=== PATIENT | female | born 1985 | race Caucasian/White ===

== ENCOUNTER 2023-09-11 21:07 | Inpatient (IN) | payer SELFPAY ==
[~2023-09-11] VITALS: Ht 165.1 cm; Wt 81.6 kg
[2023-09-11 21:16] VITALS: BP 134/92; PULSE 119; RESP 16; TEMP 97.3; O2SAT 99
[2023-09-11 21:25] VITALS: O2SAT 98
[2023-09-11] MEDS: METOCLOPRAMIDE 10 MG/2 ML INJ VIAL IVP ONE (22:01)
[2023-09-11] MEDS: MORPHINE SULFATE 4 MG/ML SYR IVP ONE (22:02)
[2023-09-11] MEDS: NACL 0.9% 1,000 ML IV ONE (22:21)
[2023-09-11] MEDS: diphenhydrAMINE 50 MG/ML VIAL IVP ONE (22:24)
[2023-09-11 23:00] LABS: ANION GAP 15.3 (8-16); CALCIUM 8.1 mg/dL (8.5-10.1); CARBON DIOXIDE 20.8 mmol/L (21-32); CREATININE 0.8 mg/dL (0.6-1.3); POTASSIUM 4.1 mmol/L (3.5-5.1)
[2023-09-11] MEDS: HYDROmorphone PFS 2 MG/ML SYR IVP ONE ×2 (23:25→23:50)
[2023-09-11 23:42] LABS: BASOPHILS # (AUTO) 0.1 K/uL (0.00-0.22); BASOPHILS % (AUTO) 0.8 % (0.0-2.0); EOSINOPHILS % (AUTO) 0.3 % (0.0-4.0); HEMATOCRIT 40.4 % (36-48); HEMOGLOBIN 13.7 g/dL (12.0-16.0); LYMPHOCYTES # (AUTO) 2.6 K/uL (2.5-16.5); LYMPHOCYTES % (AUTO) 16.4 % (20.5-51.1); MEAN CORPUSCULAR HEMOGLOBIN 31 pg (27-31); MEAN CORPUSCULAR HGB CONC 34 g/dL (33-37); MEAN CORPUSCULAR VOLUME 92.1 fL (80-94); MONOCYTES # (AUTO) 0.8 K/uL (0.8-1.0); MONOCYTES % (AUTO) 4.9 % (1.7-9.3); NEUTROPHILS # (AUTO) 12.4 K/uL (1.8-7.7); NEUTROPHILS % (AUTO) 77.6 % (42.2-75.2); PLATELET COUNT (AUTO) 196 K/uL (140-450); RED BLOOD CELL COUNT(AUTO) 4.39 MIL/uL (4.20-5.40); RED CELL DISTRIBUTION WIDTH 12.8 % (11.6-13.7)
[2023-09-11] MEDS: PROCHLORPERAZINE 10 MG/2 ML VIAL IVP ONE (23:50)
[2023-09-12] VITALS (8 sets, daily range): BP systolic 98–101; BP diastolic 62–69; PULSE 86–100; RESP 18–20; TEMP 97.1–97.7; O2SAT 95–98
[2023-09-12] MEDS ORDERED: TRAZ-343 PO (00:18)
[2023-09-12] MEDS ORDERED: TIZA4CAP PO (00:18)
[2023-09-12] MEDS ORDERED: ACET-8905 PO (00:18)
[2023-09-12] MEDS ORDERED: PANT40EC PO (00:18)
[2023-09-12] MEDS ORDERED: [UNRECOGNIZED DRUG - CODE] OP (00:18)
[2023-09-12] MEDS ORDERED: HYDR-5458 PO (00:18)
[2023-09-12] MEDS ORDERED: BUPR150T12 PO (00:18)
[2023-09-12] MEDS ORDERED: ONDA-188 SL (00:18)
[2023-09-12] MEDS ORDERED: PRON INH (00:18)
[2023-09-12] MEDS ORDERED: AMPH20CE PO (00:18)
[2023-09-12] MEDS: diphenhydrAMINE 50 MG/ML VIAL IVP ONE ×2 (00:51→10:54)
[2023-09-12] MEDS ORDERED: NACL 0.9% 1,000 ML IV SCH (01:20)
[2023-09-12] MEDS: ONDANSETRON 4 MG ODT PO SCH (03:12)
[2023-09-12] MEDS: MORPHINE SULFATE 4 MG/ML SYR IVP PRN (03:13)
[2023-09-12] MEDS: HYDROcodone/APAP 5/325 MG 1 TAB TAB PO PRN (04:31)
[2023-09-12] MEDS: MORPHINE SULFATE 2 MG/ML SYR IVP PRN (08:09)
[2023-09-12] MEDS: ENOXAPARIN 40 MG/0.4 ML SYR SUBQ SCH (09:00)
[2023-09-12] MEDS ORDERED: MORPHINE SULFATE 4 MG/ML SYR IVP PRN ×2 (10:30→15:00)
[2023-09-12 10:52] LABS: BASOPHILS # (AUTO) 0.2 K/uL (0.00-0.22); BASOPHILS % (AUTO) 1.5 % (0.0-2.0); EOSINOPHILS # (AUTO) 0.2 K/uL (0-0.4); EOSINOPHILS % (AUTO) 1.3 % (0.0-4.0); HEMATOCRIT 37.4 % (36-48); HEMOGLOBIN 12.6 g/dL (12.0-16.0); LYMPHOCYTES # (AUTO) 4.8 K/uL (2.5-16.5); LYMPHOCYTES % (AUTO) 31.9 % (20.5-51.1); MEAN CORPUSCULAR HEMOGLOBIN 31 pg (27-31); MEAN CORPUSCULAR HGB CONC 34 g/dL (33-37); MEAN CORPUSCULAR VOLUME 92.7 fL (80-94); MONOCYTES # (AUTO) 1.2 K/uL (0.8-1.0); MONOCYTES % (AUTO) 7.7 % (1.7-9.3); NEUTROPHILS # (AUTO) 8.7 K/uL (1.8-7.7); NEUTROPHILS % (AUTO) 57.6 % (42.2-75.2); PLATELET COUNT (AUTO) 249 K/uL (140-450); RED BLOOD CELL COUNT(AUTO) 4.03 MIL/uL (4.20-5.40); RED CELL DISTRIBUTION WIDTH 12.8 % (11.6-13.7); WHITE BLOOD COUNT (AUTO) 15.2 K/uL (4.8-10.8)
[2023-09-12] MEDS: PROCHLORPERAZINE 10 MG/2 ML VIAL IVP PRN ×2 (10:54→17:54)
[2023-09-12 11:07] LABS: ANION GAP 12.7 (8-16); CALCIUM 8.1 mg/dL (8.5-10.1); CARBON DIOXIDE 23.7 mmol/L (21-32); CREATININE 0.7 mg/dL (0.6-1.3); POTASSIUM 3.4 mmol/L (3.5-5.1)
[2023-09-12] MEDS: POTASSIUM CHLORIDE 10 MEQ TABER PO ONE ×2 (11:50→14:53)
[2023-09-12] MEDS ORDERED: hydrALAZINE 20 MG/ML VIAL IVP PRN (11:50)
[2023-09-12] MEDS ORDERED: KETOROLAC 10 MG TAB PO PRN (12:10)
[2023-09-12] MEDS ORDERED: PROCHLORPERAZINE 10 MG/2 ML VIAL IM PRN (17:30)
[2023-09-12] MEDS: diphenhydrAMINE 50 MG/ML VIAL IVP PRN (17:54)
[2023-09-12] MEDS: HYDROmorphone 1 MG/ML AMP IVP PRN (17:54)
[2023-09-12] MEDS: buPROPion 150 MG TABER PO SCH (20:18)
[2023-09-12] MEDS: HYDROXYCHLOROQUINE 200 MG TAB PO SCH (20:18)
[2023-09-12] MEDS: ONDANSETRON 4 MG ODT SL PRN (23:38)
[2023-09-13] VITALS (8 sets, daily range): BP systolic 101–116; BP diastolic 62–65; PULSE 89–112; RESP 18–20; TEMP 97.1–100; O2SAT 95–99
[2023-09-13 02:26] LABS: APPEARANCE,URINE HAZY (CLEAR); BILIRUBIN,URINE NEGATIVE (NEGATIVE); BLOOD, URINE NEGATIVE (NEGATIVE); COLOR,URINE YELLOW (YELLOW); LEUKOCYTE ESTERASE ,URINE NEGATIVE (NEGATIVE); NITRITE, URINE NEGATIVE (NEGATIVE); PROTEIN,URINE NEGATIVE (NEGATIVE); UGLUCOSE NEGATIVE (NEGATIVE); UROBILINOGEN,URINE 0.2 EU/dL (0.2 - 1)
[2023-09-13] MEDS: traZODone 50 MG TAB PO PRN (03:08)
[2023-09-13 03:18] LABS: BACTERIA,URINE 2+ /HPF (None Seen); RBC,URINE 0-5 /HPF (0-5); SQUAMOUS EPITHELIAL CELL,UR >10 (MANY) /LPF (0-3 (FEW)); WBC,URINE 0-5 /HPF (0-5)
[2023-09-13] MEDS: PANTOPRAZOLE 40 MG TABEC PO SCH (06:15)
[2023-09-13] MEDS: CRUSHER, PILL MC ONE (06:26)
[2023-09-13 06:43] LABS: BASOPHILS # (AUTO) 0.1 K/uL (0.00-0.22); BASOPHILS % (AUTO) 0.6 % (0.0-2.0); EOSINOPHILS # (AUTO) 0.4 K/uL (0-0.4); HEMATOCRIT 34.7 % (36-48); HEMOGLOBIN 11.9 g/dL (12.0-16.0); LYMPHOCYTES % (AUTO) 48.4 % (20.5-51.1); MEAN CORPUSCULAR HEMOGLOBIN 32 pg (27-31); MEAN CORPUSCULAR HGB CONC 34 g/dL (33-37); MEAN CORPUSCULAR VOLUME 92.4 fL (80-94); MONOCYTES # (AUTO) 0.9 K/uL (0.8-1.0); MONOCYTES % (AUTO) 6.9 % (1.7-9.3); NEUTROPHILS # (AUTO) 5.1 K/uL (1.8-7.7); NEUTROPHILS % (AUTO) 41.1 % (42.2-75.2); PLATELET COUNT (AUTO) 273 K/uL (140-450); RED BLOOD CELL COUNT(AUTO) 3.75 MIL/uL (4.20-5.40); RED CELL DISTRIBUTION WIDTH 12.8 % (11.6-13.7); WHITE BLOOD COUNT (AUTO) 12.4 K/uL (4.8-10.8)
[2023-09-13 07:21] LABS: ALBUMIN 3.4 g/dL (3.4-5.0); ANION GAP 12.4 (8-16); CALCIUM 8.1 mg/dL (8.5-10.1); CARBON DIOXIDE 25.1 mmol/L (21-32); CREATININE 0.7 mg/dL (0.6-1.3); MAGNESIUM 1.9 mg/dL (1.8-2.4); PHOSPHORUS 3.3 mg/dL (2.5-4.9); POTASSIUM 3.5 mmol/L (3.5-5.1); TOTAL BILIRUBIN 0.4 mg/dL (0.0-1.0); TOTAL PROTEIN, SERUM 6.4 g/dL (6.4-8.2)
[2023-09-13] MEDS: ALBUTEROL 0.083% 2.5 MG/3 ML NEBU INH PRN (12:06)
[2023-09-13] MEDS: METOCLOPRAMIDE 10 MG/2 ML INJ VIAL IVP PRN (14:56)
[2023-09-14] VITALS (7 sets, daily range): BP systolic 93–110; BP diastolic 57–63; PULSE 75–110; RESP 18–20; TEMP 98–98.9; O2SAT 96–100
[2023-09-14] MEDS: ACETAMINOPHEN 325 MG TAB PO PRN (06:34)
[2023-09-14 07:03] LABS: BASOPHILS # (AUTO) 0.1 K/uL (0.00-0.22); BASOPHILS % (AUTO) 0.5 % (0.0-2.0); EOSINOPHILS # (AUTO) 0.3 K/uL (0-0.4); EOSINOPHILS % (AUTO) 2.9 % (0.0-4.0); HEMATOCRIT 35.9 % (36-48); HEMOGLOBIN 12.1 g/dL (12.0-16.0); LYMPHOCYTES # (AUTO) 4.4 K/uL (2.5-16.5); LYMPHOCYTES % (AUTO) 41.3 % (20.5-51.1); MEAN CORPUSCULAR HEMOGLOBIN 31 pg (27-31); MEAN CORPUSCULAR HGB CONC 34 g/dL (33-37); MEAN CORPUSCULAR VOLUME 92.9 fL (80-94); NEUTROPHILS # (AUTO) 4.9 K/uL (1.8-7.7); NEUTROPHILS % (AUTO) 46.3 % (42.2-75.2); PLATELET COUNT (AUTO) 244 K/uL (140-450); RED BLOOD CELL COUNT(AUTO) 3.87 MIL/uL (4.20-5.40); RED CELL DISTRIBUTION WIDTH 12.8 % (11.6-13.7); WHITE BLOOD COUNT (AUTO) 10.6 K/uL (4.8-10.8)
[2023-09-14 07:27] LABS: ANION GAP 12.4 (8-16); CALCIUM 9.3 mg/dL (8.5-10.1); CARBON DIOXIDE 25.2 mmol/L (21-32); CREATININE 0.8 mg/dL (0.6-1.3); POTASSIUM 3.6 mmol/L (3.5-5.1)
[2023-09-14] MEDS: MAG SULF 2000 MG/WATER PREMIX 50 ML IV SCH (11:00)
[2023-09-14] MEDS ORDERED: VALPROATE SODIUM 500 MG in NACL 0.9% 100 ML IV SCH (11:30)
[2023-09-14] MEDS: DEXAMETHASONE 4 MG/ML VIAL IVP SCH (11:32)
[2023-09-14] MEDS: MORPHINE SULFATE 4 MG/ML SYR IVP PRN ×2 (12:12→18:11)
[2023-09-14] MEDS: METOCLOPRAMIDE 10 MG/2 ML INJ VIAL IVP PRN (18:11)
[2023-09-14] MEDS: diphenhydrAMINE 50 MG/ML VIAL IVP PRN (18:12)
[2023-09-15 04:00] VITALS: BP 104/65; PULSE 85; RESP 20; TEMP 98.6; O2SAT 97
[2023-09-15 07:07] LABS: ANION GAP 15.5 (8-16); BASOPHILS % (AUTO) 0.1 % (0.0-2.0); CALCIUM 9.1 mg/dL (8.5-10.1); CARBON DIOXIDE 22.6 mmol/L (21-32); CREATININE 0.9 mg/dL (0.6-1.3); EOSINOPHILS # (AUTO) 0.1 K/uL (0-0.4); EOSINOPHILS % (AUTO) 0.8 % (0.0-4.0); HEMATOCRIT 33.1 % (36-48); HEMOGLOBIN 11.6 g/dL (12.0-16.0); LYMPHOCYTES % (AUTO) 13.8 % (20.5-51.1); MEAN CORPUSCULAR HEMOGLOBIN 32 pg (27-31); MEAN CORPUSCULAR HGB CONC 35 g/dL (33-37); MEAN CORPUSCULAR VOLUME 91.8 fL (80-94); NEUTROPHILS # (AUTO) 11.2 K/uL (1.8-7.7); NEUTROPHILS % (AUTO) 78.3 % (42.2-75.2); PLATELET COUNT (AUTO) 305 K/uL (140-450); POTASSIUM 4.1 mmol/L (3.5-5.1); RED BLOOD CELL COUNT(AUTO) 3.61 MIL/uL (4.20-5.40); RED CELL DISTRIBUTION WIDTH 12.7 % (11.6-13.7); WHITE BLOOD COUNT (AUTO) 14.3 K/uL (4.8-10.8)
[2023-09-15 08:00] VITALS: BP 95/53; PULSE 84; RESP 18; TEMP 99.4; O2SAT 98
[2023-09-15 08:01] VITALS: PULSE 89; RESP 20; O2SAT 99
[2023-09-15 09:06] VITALS: PULSE 99; RESP 20; O2SAT 97
[2023-09-15] MEDS: HYDROmorphone PFS 2 MG/ML SYR IVP PRN (10:08)
[2023-09-15] MEDS: LORazepam 2 MG/ML VIAL IM/IVP PRN (11:08)
[2023-09-15 16:00] VITALS: BP 94/57; PULSE 92; RESP 18; TEMP 98; O2SAT 97
[2023-09-15 20:00] VITALS: BP_SYST 104; BP_SYST 107; BP_DIAS 55; BP_DIAS 58; PULSE 62; PULSE 72; PULSE 88; RESP 16; RESP 18; TEMP 97.3; TEMP 99.4; O2SAT 93; O2SAT 95; O2SAT 96
[2023-09-15 20:00] LABS: AMPHETAMINE, URINE NEGATIVE ng/ml (NEG <=1000); BARBITURATE, URINE POSITIVE ng/ml (NEG <=200); BENZODIAZEPINE, URINE POSITIVE ng/mL (NEG <=200); CANNABINOID, URINE NEGATIVE ng/mL (NEG <=50); COCAINE, URINE NEGATIVE ng/mL (NEG <=300); PHENCYCLIDINE SCREEN,URINE NEGATIVE ng/mL (NEG <=25)
[2023-09-15 20:01] LABS: OPIATE, URINE POSITIVE ng/mL (NEG <=2000)
[2023-09-15] MEDS: HYDROcodone/APAP 10/325 MG 1 TAB TAB PO PRN (23:40)
[2023-09-16 04:00] VITALS: BP 98/50; PULSE 76; RESP 18; TEMP 98.3; O2SAT 96
[2023-09-16 07:18] LABS: BASOPHILS # (AUTO) 0.1 K/uL (0.00-0.22); BASOPHILS % (AUTO) 0.3 % (0.0-2.0); EOSINOPHILS # (AUTO) 0.6 K/uL (0-0.4); EOSINOPHILS % (AUTO) 3.9 % (0.0-4.0); HEMATOCRIT 31.7 % (36-48); LYMPHOCYTES % (AUTO) 41.5 % (20.5-51.1); MEAN CORPUSCULAR HEMOGLOBIN 32 pg (27-31); MEAN CORPUSCULAR HGB CONC 35 g/dL (33-37); MEAN CORPUSCULAR VOLUME 92.9 fL (80-94); MONOCYTES # (AUTO) 1.1 K/uL (0.8-1.0); MONOCYTES % (AUTO) 7.5 % (1.7-9.3); NEUTROPHILS # (AUTO) 6.8 K/uL (1.8-7.7); NEUTROPHILS % (AUTO) 46.8 % (42.2-75.2); PLATELET COUNT (AUTO) 291 K/uL (140-450); RED BLOOD CELL COUNT(AUTO) 3.41 MIL/uL (4.20-5.40); RED CELL DISTRIBUTION WIDTH 12.5 % (11.6-13.7); WHITE BLOOD COUNT (AUTO) 14.5 K/uL (4.8-10.8)
[2023-09-16 07:36] LABS: ANION GAP 13.9 (8-16); CALCIUM 9.3 mg/dL (8.5-10.1); CARBON DIOXIDE 24.9 mmol/L (21-32); CREATININE 0.7 mg/dL (0.6-1.3); POTASSIUM 3.8 mmol/L (3.5-5.1)
[2023-09-16 08:00] VITALS: PULSE 82; RESP 18; O2SAT 96
[2023-09-16 08:52] VITALS: PULSE 82; RESP 18; O2SAT 98
[2023-09-16 09:00] VITALS: BP 118/62; PULSE 82; RESP 18; TEMP 98.1; O2SAT 97
[2023-09-16] MEDS: LORazepam 2 MG/ML VIAL IM/IVP PRN (11:23)
[2023-09-16] MEDS: diphenhydrAMINE 50 MG/ML VIAL IVP SCH (13:12)
[2023-09-16 16:28] VITALS: BP 112/60; PULSE 77; RESP 18; TEMP 99.3; O2SAT 97
[2023-09-16 20:00] VITALS: BP 141/72; PULSE 92; RESP 18; TEMP 100.2; O2SAT 18; O2SAT 97
[2023-09-17 04:00] VITALS: BP 88/53; PULSE 82; RESP 18; TEMP 99.1; O2SAT 94
[2023-09-17 07:18] LABS: BASOPHILS % (AUTO) 0.4 % (0.0-2.0); EOSINOPHILS # (AUTO) 0.5 K/uL (0-0.4); EOSINOPHILS % (AUTO) 3.8 % (0.0-4.0); HEMATOCRIT 32.8 % (36-48); HEMOGLOBIN 11.2 g/dL (12.0-16.0); LYMPHOCYTES # (AUTO) 4.5 K/uL (2.5-16.5); LYMPHOCYTES % (AUTO) 37.2 % (20.5-51.1); MEAN CORPUSCULAR HEMOGLOBIN 32 pg (27-31); MEAN CORPUSCULAR HGB CONC 34 g/dL (33-37); MEAN CORPUSCULAR VOLUME 92.9 fL (80-94); MONOCYTES % (AUTO) 8.2 % (1.7-9.3); NEUTROPHILS # (AUTO) 6.1 K/uL (1.8-7.7); NEUTROPHILS % (AUTO) 50.4 % (42.2-75.2); PLATELET COUNT (AUTO) 305 K/uL (140-450); RED BLOOD CELL COUNT(AUTO) 3.53 MIL/uL (4.20-5.40); RED CELL DISTRIBUTION WIDTH 12.5 % (11.6-13.7); WHITE BLOOD COUNT (AUTO) 12.1 K/uL (4.8-10.8)
[2023-09-17 07:24] LABS: ANION GAP 12.1 (8-16); CALCIUM 9.2 mg/dL (8.5-10.1); CARBON DIOXIDE 27.6 mmol/L (21-32); CREATININE 0.9 mg/dL (0.6-1.3); POTASSIUM 3.7 mmol/L (3.5-5.1)
[2023-09-17 08:00] VITALS: BP 100/46; PULSE 75; RESP 15; TEMP 98.9; O2SAT 94
[2023-09-17 08:06] VITALS: PULSE 92; RESP 18; O2SAT 97
[2023-09-17 17:00] VITALS: BP 112/58; PULSE 72; RESP 18; TEMP 98; O2SAT 98
[2023-09-17 20:00] VITALS: BP 128/63; PULSE 82; PULSE 84; RESP 18; TEMP 98.6; O2SAT 98
[2023-09-17 22:40] VITALS: BP 119/65; PULSE 78; RESP 18; TEMP 98.5; O2SAT 97
[2023-09-18 03:00] VITALS: BP 122/66; PULSE 82; RESP 18; O2SAT 98
[2023-09-18 04:00] VITALS: BP 110/60; PULSE 77; RESP 18; TEMP 98.6; O2SAT 97
[2023-09-18] MEDS: CRUSHER, PILL MC ONE (06:23)
[2023-09-18 08:00] VITALS: BP 105/54; PULSE 70; RESP 19; TEMP 98.6; O2SAT 97
[2023-09-18 08:47] VITALS: PULSE 82; RESP 18; O2SAT 98
[2023-09-18] MEDS: cephALEXin 500 MG CAP PO SCH (12:03)
[2023-09-18] MEDS: NACL 0.9% 1,000 ML IV SCH (12:35)
[2023-09-18] MEDS: ONDANSETRON 4 MG/2 ML VIAL IVP PRN (13:32)
[2023-09-18] MEDS ORDERED: PROCHLORPERAZINE 10 MG/2 ML VIAL IVP PRN (15:15)
[2023-09-18 16:00] VITALS: BP 105/54; PULSE 94; RESP 20; TEMP 97.7; O2SAT 98
[2023-09-18 20:00] VITALS: BP 110/61; PULSE 84; RESP 18; TEMP 98.5; O2SAT 92; O2SAT 98
[2023-09-19 04:00] VITALS: BP 99/42; PULSE 84; RESP 18; TEMP 98.3; O2SAT 94
[2023-09-19] MEDS ORDERED: VANCOMYCIN PER PHARMACY MC PRN (04:05)
[2023-09-19] MEDS: diphenhydrAMINE 50 MG/ML VIAL IVP PRN ×2 (05:35→10:49)
[2023-09-19] MEDS: PANTOPRAZOLE 40 MG TABEC PO SCH (06:07)
[2023-09-19 06:54] LABS: BASOPHILS % (AUTO) 0.3 % (0.0-2.0); EOSINOPHILS # (AUTO) 0.6 K/uL (0-0.4); EOSINOPHILS % (AUTO) 5.7 % (0.0-4.0); HEMATOCRIT 33.1 % (36-48); HEMOGLOBIN 11.3 g/dL (12.0-16.0); LYMPHOCYTES # (AUTO) 3.6 K/uL (2.5-16.5); LYMPHOCYTES % (AUTO) 35.7 % (20.5-51.1); MEAN CORPUSCULAR HEMOGLOBIN 32 pg (27-31); MEAN CORPUSCULAR HGB CONC 34 g/dL (33-37); MEAN CORPUSCULAR VOLUME 92.5 fL (80-94); MONOCYTES # (AUTO) 0.8 K/uL (0.8-1.0); MONOCYTES % (AUTO) 8.3 % (1.7-9.3); PLATELET COUNT (AUTO) 308 K/uL (140-450); RED BLOOD CELL COUNT(AUTO) 3.58 MIL/uL (4.20-5.40); RED CELL DISTRIBUTION WIDTH 12.6 % (11.6-13.7)
[2023-09-19] MEDS: VANCOMYCIN 1.25GM PREMIX 250 ML IV ONE (07:02)
[2023-09-19 07:19] LABS: ALBUMIN 3.4 g/dL (3.4-5.0); ANION GAP 14.7 (8-16); CALCIUM 8.6 mg/dL (8.5-10.1); CARBON DIOXIDE 23.1 mmol/L (21-32); CREATININE 0.9 mg/dL (0.6-1.3); POTASSIUM 3.8 mmol/L (3.5-5.1); TOTAL BILIRUBIN 0.5 mg/dL (0.0-1.0); TOTAL PROTEIN, SERUM 6.8 g/dL (6.4-8.2)
[2023-09-19] MEDS: VANCOMYCIN 500 MG VIAL ONE (07:26)
[2023-09-19] MEDS: VANCOMYCIN 1,000 MG VIAL ONE (07:27)
[2023-09-19 08:00] VITALS: BP 11/58; PULSE 80; RESP 18; TEMP 97.5; O2SAT 96
[2023-09-19] MEDS: CEFEPIME 2,000 MG in DEXTROSE 5% 100 ML IV SCH (09:00)
[2023-09-19 16:00] VITALS: BP 113/87; PULSE 82; RESP 18; TEMP 98.5; O2SAT 97
[2023-09-19 20:00] VITALS: BP 120/64; PULSE 98; RESP 16; TEMP 98.5; O2SAT 97
[2023-09-20] MEDS: VANCOMYCIN 1,000 MG VIAL ONE (00:22)
[2023-09-20] MEDS: VANCOMYCIN 1,000 MG in DEXTROSE 5% 250 ML IV SCH ×2 (00:35→11:34)
[2023-09-20 00:53] VITALS: BP 110/58; PULSE 92; RESP 18; TEMP 97.3; O2SAT 97
[2023-09-20 04:00] VITALS: BP 119/54; PULSE 81; RESP 17; TEMP 97.1; O2SAT 97
[2023-09-20 06:58] LABS: BASOPHILS # (AUTO) 0.1 K/uL (0.00-0.22); BASOPHILS % (AUTO) 0.8 % (0.0-2.0); EOSINOPHILS # (AUTO) 0.5 K/uL (0-0.4); EOSINOPHILS % (AUTO) 5.5 % (0.0-4.0); HEMATOCRIT 34.8 % (36-48); HEMOGLOBIN 12.2 g/dL (12.0-16.0); LYMPHOCYTES # (AUTO) 3.2 K/uL (2.5-16.5); LYMPHOCYTES % (AUTO) 33.9 % (20.5-51.1); MEAN CORPUSCULAR HEMOGLOBIN 32 pg (27-31); MEAN CORPUSCULAR HGB CONC 35 g/dL (33-37); MEAN CORPUSCULAR VOLUME 92.2 fL (80-94); MONOCYTES # (AUTO) 0.9 K/uL (0.8-1.0); MONOCYTES % (AUTO) 8.9 % (1.7-9.3); NEUTROPHILS # (AUTO) 4.9 K/uL (1.8-7.7); NEUTROPHILS % (AUTO) 50.9 % (42.2-75.2); PLATELET COUNT (AUTO) 296 K/uL (140-450); RED BLOOD CELL COUNT(AUTO) 3.77 MIL/uL (4.20-5.40); RED CELL DISTRIBUTION WIDTH 12.7 % (11.6-13.7); WHITE BLOOD COUNT (AUTO) 9.6 K/uL (4.8-10.8)
[2023-09-20 07:11] LABS: ANION GAP 16.1 (8-16); CALCIUM 9.2 mg/dL (8.5-10.1); CARBON DIOXIDE 22.8 mmol/L (21-32); CREATININE 0.7 mg/dL (0.6-1.3); POTASSIUM 3.9 mmol/L (3.5-5.1)
[2023-09-20 08:00] VITALS: BP 104/71; PULSE 97; RESP 18; TEMP 98.6; O2SAT 97
[2023-09-20 16:00] VITALS: BP 107/59; PULSE 92; RESP 18; TEMP 97.8; O2SAT 98
[2023-09-20 20:00] VITALS: PULSE 97; RESP 18; O2SAT 97
[2023-09-21 00:28] VITALS: BP 105/57; PULSE 97; RESP 18; TEMP 98; O2SAT 97
[2023-09-21 07:02] LABS: BASOPHILS # (AUTO) 0.2 K/uL (0.00-0.22); BASOPHILS % (AUTO) 2.3 % (0.0-2.0); EOSINOPHILS # (AUTO) 0.6 K/uL (0-0.4); EOSINOPHILS % (AUTO) 7.1 % (0.0-4.0); HEMATOCRIT 33.1 % (36-48); HEMOGLOBIN 11.4 g/dL (12.0-16.0); LYMPHOCYTES # (AUTO) 2.6 K/uL (2.5-16.5); LYMPHOCYTES % (AUTO) 30.3 % (20.5-51.1); MEAN CORPUSCULAR HEMOGLOBIN 32 pg (27-31); MEAN CORPUSCULAR HGB CONC 34 g/dL (33-37); MEAN CORPUSCULAR VOLUME 91.8 fL (80-94); MONOCYTES # (AUTO) 0.8 K/uL (0.8-1.0); MONOCYTES % (AUTO) 9.2 % (1.7-9.3); NEUTROPHILS # (AUTO) 4.4 K/uL (1.8-7.7); NEUTROPHILS % (AUTO) 51.1 % (42.2-75.2); PLATELET COUNT (AUTO) 289 K/uL (140-450); RED BLOOD CELL COUNT(AUTO) 3.61 MIL/uL (4.20-5.40); RED CELL DISTRIBUTION WIDTH 12.3 % (11.6-13.7); WHITE BLOOD COUNT (AUTO) 8.5 K/uL (4.8-10.8)
[2023-09-21 08:00] VITALS: PULSE 97; RESP 18; O2SAT 97
[2023-09-21 08:28] VITALS: BP 108/76; PULSE 74; RESP 20; TEMP 97.2; O2SAT 98
[2023-09-21 11:42] LABS: ANION GAP 9.1 (8-16); CALCIUM 8.6 mg/dL (8.5-10.1); CARBON DIOXIDE 26.5 mmol/L (21-32); CREATININE 0.8 mg/dL (0.6-1.3); POTASSIUM 3.6 mmol/L (3.5-5.1)
[2023-09-21] MEDS: VANCOMYCIN 1.25GM PREMIX 250 ML IV SCH (12:07)
[2023-09-21 16:28] VITALS: BP 110/84; PULSE 80; RESP 18; TEMP 98.2; O2SAT 97
[2023-09-22 00:55] VITALS: BP 118/66; PULSE 100; RESP 18; TEMP 98.1; O2SAT 98
[2023-09-22 08:00] VITALS: BP 132/72; PULSE 76; PULSE 97; RESP 18; TEMP 98.4; O2SAT 97; O2SAT 98
[2023-09-22 11:07] LABS: BASOPHILS % (AUTO) 0.2 % (0.0-2.0); EOSINOPHILS # (AUTO) 0.6 K/uL (0-0.4); EOSINOPHILS % (AUTO) 6.8 % (0.0-4.0); HEMATOCRIT 32.7 % (36-48); HEMOGLOBIN 11.2 g/dL (12.0-16.0); LYMPHOCYTES # (AUTO) 2.2 K/uL (2.5-16.5); LYMPHOCYTES % (AUTO) 23.8 % (20.5-51.1); MEAN CORPUSCULAR HEMOGLOBIN 31 pg (27-31); MEAN CORPUSCULAR HGB CONC 34 g/dL (33-37); MEAN CORPUSCULAR VOLUME 91.5 fL (80-94); MONOCYTES # (AUTO) 0.6 K/uL (0.8-1.0); MONOCYTES % (AUTO) 6.5 % (1.7-9.3); NEUTROPHILS # (AUTO) 5.7 K/uL (1.8-7.7); NEUTROPHILS % (AUTO) 62.7 % (42.2-75.2); PLATELET COUNT (AUTO) 272 K/uL (140-450); RED BLOOD CELL COUNT(AUTO) 3.57 MIL/uL (4.20-5.40); RED CELL DISTRIBUTION WIDTH 12.3 % (11.6-13.7); WHITE BLOOD COUNT (AUTO) 9.1 K/uL (4.8-10.8)
[2023-09-22 11:35] LABS: ANION GAP 13.1 (8-16); CALCIUM 7.9 mg/dL (8.5-10.1); CARBON DIOXIDE 22.9 mmol/L (21-32); CREATININE 0.9 mg/dL (0.6-1.3)
[2023-09-22] MEDS: VANCOMYCIN 1,000 MG in DEXTROSE 5% 250 ML IV SCH (14:35)
[2023-09-22 16:00] VITALS: BP 128/66; PULSE 78; RESP 18; TEMP 98.4; O2SAT 98
[2023-09-22 17:59] VITALS: BP 132/64; RESP 16; TEMP 98.5
[2023-09-22] MEDS ORDERED: ACET-5634 PO ×2 (18:14→19:01)
[2023-09-22] MEDS ORDERED: METO-485 PO (19:04)
[2023-09-22] MEDS ORDERED: DIPH25TA53 PO (19:05)
== END 2023-09-22 19:30 | disposition home or self-care (01) | DRG 103 ==
LOC: MED 21:07 → MTU 09-12 01:20 → EDBD 09-12 01:20 → MTU 09-16 18:43
PROVIDERS: ADMIT Student in an Organized Health Care Education/Training Program; ATTEND Student in an Organized Health Care Education/Training Program
PROC: 05HY33Z Insertion of Infusion Device into Upper Vein, Percutaneous Approach (ICD-10-PCS; principal; 2023-09-19)
PROC: B54MZZA Ultrasonography of Right Upper Extremity Veins, Guidance (ICD-10-PCS; 2023-09-19)
DX: G43.901 Migraine, unspecified, not intractable, with status migrainosus (principal); L03.116 Cellulitis of left lower limb; L03.115 Cellulitis of right lower limb; D72.829 Elevated white blood cell count, unspecified; M35.00 Sjogren syndrome, unspecified; Z86.73 Personal history of transient ischemic attack (TIA), and cerebral infarction without residual deficits; Z79.899 Other long term (current) drug therapy
CPT/HCPCS: 36415; 70450; 71045; 80048; 80053; 80202; 80305; 81001; 83605; 83735; 84100; 85025; 87081; 87086; 93970; 94640; 96361; 96374; 96375; 96376; 99285; J0692; J0780; J1100; J1170; J1200; J1650; J2060; J2270; J2405; J2765; J3370; J3372; J3475; J3490; J7060; J7613; Q0092; Q0162